=== PATIENT | male | born 1960 | race Caucasian/White ===

== ENCOUNTER 2017-07-08 20:55 | Emergency (ER) | payer BC, OTHER ==
[~2017-07-08] VITALS: Ht 170.2 cm; Wt 79.8 kg
[~2017-07-08 20:55] MED LIST: CIPR-255 PO; HYDR25TA4 PO; LISI-725 PO
[2017-07-08 20:59] VITALS: TEMP 37.2; Ht 170.2 cm; Wt 79.8 kg
--- NOTE | 2017-07-08 21:19 | EMERGENCY ROOM VISIT NOTE ---
History Report prepared by Harvey: Dixie Otto Under the Supervision of: Dr. Ney Grady M.D. First contact with patient: 21:10 Chief Complaint: FEVER Stated Complaint: FEVER History of Present Illness The patient is a 57 year old male who presents to the Emergency Room with complaints of constant dental pain beginning 2 weeks ago. He rates the pain at a 2/10. The patient reports that he has been having trouble biting down and that he believes he has a dental infection. He states that he developed sores in his mouth and gums over the last 3 days. The patient was prescribed penicillin by his dentist and states that he has been taking it for two days but stopped today. He also reports having a fever and a stuffy nose beginning 3 days ago. Source of History: patient Onset: 2 weeks ago Position: teeth Symptom Intensity: rated at a 2/10 Quality: other (dental pain ) Timing: constant Associated Symptoms: + fevers Review of Systems See HPI for pertinent positives and negatives. A total of ten systems were reviewed and were otherwise negative. Past Medical & Surgical Medical Problems: (1) Psoriasis Family History Hypertension Social History Smoking Status: Former Smoker Alcohol Use: none Occupation Status: unemployed Current/Historical Medications Scheduled Hydrochlorothiazide (Hctz), 25 MG PO DAILY Lisinopril (Zestril), 20 MG PO DAILY Scheduled PRN Fluocinonide (Lidex 0.05% Cream), 1 APPLN TOP BID PRN for Allergies Coded Allergies: No Known Allergies (Unverified , 09/07/16) Physical Exam Vital Signs Date Time Temp Pulse Resp B/P (MAP) Pulse Ox O2 Delivery O2 Flow Rate FiO2 07/08/17 22:02 90 20 156/100 95 07/08/17 20:59 37.2 93 20 170/100 94 Room Air Physical Exam GENERAL: Awake, alert, well-appearing, in no distress HENT: Normocephalic, atraumatic. Poor dentition but no fluctuant areas in the gums. No edema throughout oropharynx. Mild injection of posterior pharynx, no exudate, no tongue elevation, no trismus, no pain with tracheal manipulation. EYES: Normal conjunctiva. Sclera non-icteric. NECK: Supple. No nuchal rigidity. FROM. No JVD. RESPIRATORY: Clear to auscultation. CARDIAC: Regular rate, normal rhythm. Extremities warm and well perfused. Pulses equal. ABDOMEN: Soft, non-distended. No tenderness to palpation. No rebound or guarding. No masses. RECTAL: Deferred. MUSCULOSKELETAL: Chest examination reveals no tenderness. The back is symmetrical on inspection without obvious abnormality. There is no CVA tenderness to palpation. No joint edema. LOWER EXTREMITIES: Calves are equal size bilaterally and non-tender. No edema. No discoloration. NEURO: Normal sensorium. No sensory or motor deficits noted. SKIN: No rash or jaundice noted. Medical Decision & Procedures ED Course 2111: The patient was evaluated in room C8. A complete history and physical exam was performed. 2129: The patient does not want an X-ray done, and would like to go home. 2134: I reevaluated the patient. Discussed results and discharge instructions: He verbalized understanding and agreement. The patient is ready for discharge. Medical Decision I reviewed the patient's past medical history, medications, and the nursing notes as described above. Differentials include: URI, pharyngitis, dental infection or abscess, peritonsillar abscess, and hypopharyngeal abscess. Patient is a 57-year-old gentleman who presents to emergency department with report of feverishness and chills in the setting of continued dental pain per history of present illness. She arrives afebrile, well-appearing. Vital signs stable. The patient does have poor dentition but otherwise no areas of fluctuance concerning for abscess. Otherwise on exam has mild injection in the posterior pharynx but no edema, no tongue elevation or trismus, no pain with tracheal manipulation. Therefore SYSTEMS QA ANALYST and RTA unlikely. Or over there were no mucosal lesions that would make me suspicious for zoster as was the patient's concern (since he had a friend recently diagnosed with that). Patient does have nasal congestion developing over the past several days which likely explains the patient's symptoms. Patient was given a prescription for penicillin for the possibility of dental infection although his dentist 2 weeks ago did not find any evidence of abscess on x-ray. Discussed with the patient that we should repeat the x-ray today to ensure that abscesses have not developed. However while the patient initially agreed he later changed his mind and was agreeable for discharge with the plan for supportive care and follow-up with his doctor. Findings and plan for follow-up d/w patient. Patient agreeable and d /c'd per discharge instructions. Medication Reconcilliation Current Medication List: was personally reviewed by me Blood Pressure Screening Patient's blood pressure: Elevated blood pressure Blood pressure disposition: Elevated BP felt to be situational Impression Primary Impression: URI (upper respiratory infection) Scribe Attestation The scribe's documentation has been prepared under my direction and personally reviewed by me in its entirety. I confirm that the note above accurately reflects all work, treatment, procedures, and medical decision making performed by me. Departure Information Dispostion Home / Self-Care Referrals Albino Owens III, M.D. (PCP) Patient Instructions ED Upper Resp Infec No Abx Tx, My [facility] Additional Instructions Please follow up with your primary care physician on Sunday for re-evaluation as well as with your dentist as planned. Otherwise, your exam did not show signs of an emergent condition at this time. We recommended that you have x-rays done to see if you have developed an abscess since your last x-ray but you declined this, we were unable to determine if your dental infection has worsened. You do have new nasal congestion consistent with a upper respiratory infection that is likely viral and likely contributing to your symptoms. Take acetaminophen and ibuprofen as needed for pain and fevers. Drink plenty of fluids to ensure hydration. Continue her current antibiotics scribed by her dentist for possible dental infection. Return to the emergency department for worsening symptoms as described in the accompanying instructions.
[2017-07-08] MEDS ORDERED: LDXCR30 TOP (21:34)
[2017-07-08 22:02] VITALS: BP 156/100; PULSE 90; O2SAT 95
== END 2017-07-08 22:04 | disposition home or self-care (01) ==
LOC: C.EDB 20:55 → C.EDC 22:04
DX: J06.9 Acute upper respiratory infection, unspecified (principal); Z87.891 Personal history of nicotine dependence; Z82.49 Family history of ischemic heart disease and other diseases of the circulatory system; Z79.899 Other long term (current) drug therapy